=== PATIENT | female | born 1990 | race Hispanic/Latino ===

== ENCOUNTER 2022-02-20 12:50 | Emergency (ER) | payer SELFPAY ==
[2022-02-20 15:31] LABS: CARBON DIOXIDE,CO2 25.5 mmol/L (21.0-32.0); POTASSIUM,K 3.9 mmol/L (3.5-5.1)
[2022-02-20 18:24] LABS: C. TRACHOMATIS BY PCR NOT DETECTED; N. GONORRHOEAE BY PCR NOT DETECTED
== END 2022-02-20 18:58 | disposition home or self-care (01) ==
LOC: MW.ED 12:50
DX: O20.0 Threatened abortion (principal); O23.91 Unspecified genitourinary tract infection in pregnancy, first trimester; Z3A.01 Less than 8 weeks gestation of pregnancy
CPT/HCPCS: 36415; 76801; 76801-26; 80053; 81001; 81025; 84702; 85025; 86850; 86900; 86901; 87480; 87491; 87510; 87591; 87660; 96372; 99284; J2790

== ENCOUNTER 2022-03-30 13:11 | Emergency (ER) | payer SELFPAY ==
[2022-03-30] MEDS ORDERED: Acetaminophen 325 MG Tab PO ONE (13:56)
== END 2022-03-30 15:36 | disposition home or self-care (01) ==
LOC: MW.ED 13:11
DX: O99.891 Other specified diseases and conditions complicating pregnancy (principal); R10.30 Lower abdominal pain, unspecified; Z3A.13 13 weeks gestation of pregnancy
CPT/HCPCS: 81001; 99284; A9270

== ENCOUNTER 2022-09-24 23:48 | Inpatient (IN) | payer SELFPAY ==
[2022-09-25] MEDS ORDERED: Sodium Chloride 0.9% 20 ML SDV IV PRN (00:36)
[2022-09-25] MEDS ORDERED: Sodium Chloride 0.9% 10 ML Syringe FLUSH PRN (00:36)
[2022-09-25] MEDS ORDERED: Citric Acid/Sodium Citrate Solution 30 ML Cup PO ONE (00:36)
[2022-09-25] MEDS ORDERED: Sodium Chloride 0.9% 2.5 ML Syringe FLUSH PRN (00:36)
[2022-09-25] MEDS ORDERED: ceFAZolin 2 GM in Sodium Chloride 0.9% 50 ML IV ONE (00:36)
[2022-09-25] MEDS ORDERED: Metoclopramide 10 MG/2 ML SDV IVPUSH PRN (00:42)
[2022-09-25] MEDS ORDERED: ePHEDrine 50 MG/ML SDV IVPUSH PRN (00:42)
[2022-09-25] MEDS ORDERED: Morphine 2 MG/ML SYRINGE IVPUSH PRN (00:42)
[2022-09-25] MEDS ORDERED: fentaNYL 50 MCG/ML SDV IVPUSH PRN (00:42)
[2022-09-25] MEDS ORDERED: fentaNYL 100 MCG/2 ML SDV IVPUSH PRN (00:42)
[2022-09-25] MEDS ORDERED: HYDROmorphone 1 MG/ML Syringe IVPUSH PRN (00:42)
[2022-09-25] MEDS ORDERED: Naloxone 0.4 MG/ML SDV IVPUSH PRN (00:42)
[2022-09-25] MEDS ORDERED: diphenhydrAMINE 50 MG/ML SDV IVPUSH PRN ×2 (00:42→01:34)
[2022-09-25] MEDS ORDERED: droPERidol 5 MG/2 ML SDV IVPUSH PRN (00:42)
[2022-09-25] MEDS ORDERED: Albuterol 0.083% 2.5 MG/3 ML Neb Soln NEB PRN (00:42)
[2022-09-25] MEDS ORDERED: Ondansetron 4 MG/2 ML SDV IVPUSH PRN ×3 (00:42→01:34)
[2022-09-25] MEDS ORDERED: Acetaminophen/oxyCODONE 325-5 MG Tab PO PRN ×3 (00:42→01:34)
[2022-09-25] MEDS ORDERED: Lactated Ringers 1,000 ML IV SCH ×2 (00:45→01:45)
[2022-09-25] MEDS ORDERED: Oxytocin/0.9 % Sodium Chloride 30 UNIT/500 ML BAG IV SCH (00:45)
[2022-09-25] MEDS ORDERED: Oxytocin 10 Units/1 ML SDV ONE ×2 (00:46→01:53)
[2022-09-25] MEDS ORDERED: ceFAZolin 1 GM Vial ONE (00:46)
[2022-09-25] MEDS ORDERED: Ketorolac 30 MG/ML SDV ONE (00:46)
[2022-09-25] MEDS ORDERED: fentaNYL 100 MCG/2 ML SDV ONE (00:46)
[2022-09-25] MEDS ORDERED: Ondansetron 4 MG/2 ML SDV ONE (00:46)
[2022-09-25] MEDS ORDERED: Morphine PF 10 MG/10 ML SDV ONE (00:46)
[2022-09-25] MEDS ORDERED: Dexamethasone 4 MG/ML 5 ML MDV ONE (00:46)
[2022-09-25] MEDS ORDERED: Phenylephrine 1% 10 MG/ML SDV ONE (00:47)
[2022-09-25 00:57] LABS: HEMATOCRIT 33.4 % (36.0-46.0); HEMOGLOBIN 11.2 g/dL (12.0-16.0); MEAN CORPUSCULAR HEMOGLOBIN 27.8 pg (27.0-32.0); MEAN CORPUSCULAR HGB CONC 33.5 g/dL (31.0-37.0); MEAN CORPUSCULAR VOLUME 82.9 fL (80.0-98.0); PLATELET COUNT,PLT 202 K/uL (150-400); RED BLOOD CELL COUNT 4.03 M/uL (4.30-5.90); WHITE BLOOD CELL COUNT,WBC 13.65 K/uL (4.0-11.0)
[2022-09-25] MEDS ORDERED: Bisacodyl 10 MG Supp RECTAL PRN (01:34)
[2022-09-25] MEDS ORDERED: Oxytocin 10 Units/1 ML SDV IM PRN (01:34)
[2022-09-25] MEDS ORDERED: Lanolin 100% Cream 7 GM Tube TOP PRN (01:34)
[2022-09-25] MEDS ORDERED: Misoprostol 200 MCG Tab RECTAL PRN (01:34)
[2022-09-25] MEDS ORDERED: Methylergonovine 0.2 MG/1 ML Amp IM PRN (01:34)
[2022-09-25] MEDS ORDERED: Tranexamic Acid 1,000 MG in Sodium Chloride 0.9% 100 ML IV PRN (01:34)
[2022-09-25] MEDS: Ketorolac 30 MG/ML SDV IVPUSH SCH ×3 (08:15→19:59)
[2022-09-25] MEDS: Docusate Sodium 100 MG Cap PO SCH (22:04)
[2022-09-26] MEDS: Ketorolac 30 MG/ML SDV IVPUSH SCH (01:39)
[2022-09-26 06:17] LABS: HEMATOCRIT 28.4 % (36.0-46.0); HEMOGLOBIN 9.2 g/dL (12.0-16.0)
[2022-09-26] MEDS ORDERED: Ibuprofen 800 MG Tab PO PRN (08:00)
[2022-09-26] MEDS: Docusate Sodium 100 MG Cap PO SCH (09:06)
== END 2022-09-26 16:40 | disposition home or self-care (01) | DRG 788 ==
LOC: MW.OBCHECK 23:48 → MW.OB 23:48 → MW.OBCHECK 09-25 00:06 → MW.OB 09-25 00:07 → OBSVTOIN 09-25 00:36 → MW.OB 09-25 01:57
PROVIDERS: ADMIT Obstetrics & Gynecology Obstetrics; ATTEND Obstetrics & Gynecology
PROC: 10D00Z1 Extraction of Products of Conception, Low, Open Approach (ICD-10-PCS; principal; 2022-09-25)
DX: O34.211 Maternal care for low transverse scar from previous cesarean delivery (principal); O42.02 Full-term premature rupture of membranes, onset of labor within 24 hours of rupture; Z37.0 Single live birth; Z3A.39 39 weeks gestation of pregnancy
CPT/HCPCS: 36415; 59025; 84112; 85014; 85018; 85027; 86592; 86850; 86900; 86901; A9270-GY; J0131; J0690; J1100; J1200; J1885; J2274; J2370; J2405; J2590; J3010

== ENCOUNTER 2023-01-06 00:36 | Emergency (ER) | payer SELFPAY ==
[2023-01-06] MEDS ORDERED: Acetaminophen 325 MG Tab PO ONE (02:14)
[2023-01-06 02:20] LABS: CORONAVIRUS COVID-19 NAA POSITIVE (NEGATIVE); INFLUENZA A NAA NEGATIVE (NEGATIVE); INFLUENZA B NAA NEGATIVE (NEGATIVE); RESPIRATORY SYNCYTIAL VIR NAA NEGATIVE (NEGATIVE)
== END 2023-01-06 03:07 | disposition home or self-care (01) ==
LOC: MW.ED 00:36
DX: U07.1 COVID-19 (principal)
CPT/HCPCS: 0241U; 99283; A9270

== ENCOUNTER 2023-08-21 14:06 | Emergency (ER) | payer SELFPAY ==
[2023-08-21 14:46] LABS: BASOPHILS ABSOLUTE AUTO 0.02 K/uL (0.00-0.20); BASOPHILS PERCENT AUTO 0.2 % (0.0-1.0); EOSINOPHILS ABSOLUTE AUTO 0.28 K/uL (0.00-0.45); EOSINOPHILS PERCENT AUTO 2.3 % (0.0-6.0); HEMATOCRIT 41.2 % (37.0-47.0); HEMOGLOBIN 13.6 g/dL (12.0-16.0); IMMATURE GRAN ABSOLUTE AUTO 0.02 K/uL (0.00-0.05); IMMATURE GRAN PERCENT AUTO 0.2 % (0.0-0.4); LYMPHOCYTES ABSOLUTE AUTO 2.09 K/uL (1.00-4.80); LYMPHOCYTES PERCENT AUTO 17.2 % (24.0-44.0); MEAN CORPUSCULAR HEMOGLOBIN 27.9 pg (28.0-32.0); MEAN CORPUSCULAR VOLUME 84.4 fL (83.0-99.0); MEAN PLATELET VOLUME 10.8 fL (9.4-12.3); MONOCYTES ABSOLUTE AUTO 0.53 K/uL (0.00-0.80); MONOCYTES PERCENT AUTO 4.4 % (0.0-8.0); NEUTROPHILS ABSOLUTE AUTO 9.21 K/uL (1.80-7.70); NEUTROPHILS PERCENT AUTO 75.7 % (41.0-71.0); PLATELET COUNT,PLT 255 K/uL (150-400); RED BLOOD CELL COUNT 4.88 M/uL (4.10-5.30); WHITE BLOOD CELL COUNT,WBC 12.15 K/uL (3.9-11.3)
[2023-08-21] MEDS: Sodium Chloride 0.9% 1,000 ML IV ONE (14:51)
[2023-08-21] MEDS: Sodium Chloride 0.9% 10 ML Syringe FLUSH PRN (14:52)
[2023-08-21] MEDS: Sodium Chloride 0.9% 2.5 ML Syringe FLUSH PRN (14:52)
[2023-08-21] MEDS: Famotidine 20 MG/2 ML SDV IVPUSH ONE (14:52)
[2023-08-21] MEDS: Ondansetron 4 MG/2 ML SDV IVPUSH ONE (14:52)
[2023-08-21 15:14] LABS: A/G RATIO 0.9 (0.9-1.6); ALBUMIN 3.5 g/dL (3.4-5.0); BILIRUBIN TOTAL 0.5 mg/dL (0.2-1.0); CALCIUM 8.6 mg/dL (8.5-10.1); CREATININE 0.7 mg/dL (0.6-1.0); EST CRCL DRUG DOSING (CG) 86.35 mL/min; POTASSIUM,K 3.5 mmol/L (3.5-5.1); PROTEIN TOTAL,TP 7.5 g/dL (6.4-8.2)
[2023-08-21] MEDS: Sodium Chloride 0.9% 500 ML IV SCH (15:56)
== END 2023-08-21 16:18 | disposition home or self-care (01) ==
LOC: MW.ED 14:06
DX: R10.13 Epigastric pain (principal); R10.12 Left upper quadrant pain; Z79.899 Other long term (current) drug therapy
CPT/HCPCS: 36415; 80053; 83690; 84703; 85025; 96361; 96374; 96375; 99284; J2405; J3490; J7030; J7040